=== PATIENT | male | born 1960 | race Hispanic/Latino ===

== ENCOUNTER 2016-05-02 19:07 | Emergency (ER) | payer SELFPAY ==
[~2016-05-02] VITALS: Ht 162.6 cm; Wt 72.1 kg
[~2016-05-02 19:07] MED LIST: ASPIR-LOW81 MG PO; ATARAX,VISTARIL50 MG PO; ATORVASTATIN CA80 MG PO; CLOPIDOGREL75 MG PO; ENDOCET 5-3251 EACH PO; Ecotrin PO; LEVAQUIN750 MG PO; LISINOPRIL5 MG PO; LOPRESSOR25 MG PO; LOVASTATIN20 MG PO; LOVENOX40 MG/0.4 SC; NITROSTAT0.4 MG SL; PREDNISONE10 MG PO; SENOKOT S,PE1 TABLET PO
[2016-05-02 21:03] LABS: HEMATOCRIT 42.5 % (38.0-50.0); MCH 31.4 PG (29.0-34.0); MCV 87.3 FL (86-99); MEAN PLAT.VOLUME 11.2 uM^3 (9.0-12.4); PLATELET COUNT 239 K/uL (156-360); RBC DIS.WIDTH-CV 12.2 % (11.8-14.6); RBC DIS.WIDTH-SD 38.1 % (39-53); RED BLOOD COUNT 4.87 M/uL (4.00-5.50); WHITE BLOOD COUNT 10.2 K/uL (4.1-10.2)
[2016-05-02 21:11] LABS: CHLORIDE 104 mEq/L (99-109); SODIUM 140 mEq/L (136-147)
[2016-05-02 21:13] LABS: GLUCOSE 113 mg/dL (70-99)
[2016-05-02 21:14] LABS: ANION GAP 14 MEQ/L (2-14)
[2016-05-02 21:16] LABS: SERUM ETHYL ALCOHOL 268 mg/dL
[2016-05-02 21:17] LABS: GFR ESTIMATE (CALCULATED) > 59 mL/min/
[2016-05-02 21:19] LABS: UREA NITROGEN (BUN) 12 mg/dL (9-23)
[2016-05-02 21:20] LABS: SALICYLATE < 5.0 MG/DL (15-30)
[2016-05-02 21:54] LABS: TROP-I INTERPRETATION NEGATIVE; TROPONIN-I 0.02 ng/mL (0.0-0.30)
[2016-05-02 23:32] VITALS: BP 104/50
== END 2016-05-02 23:33 | disposition home or self-care (01) ==
LOC: EME 19:07
DX: S01.81XA Laceration without foreign body of other part of head, initial encounter (principal); W01.0XXA Fall on same level from slipping, tripping and stumbling without subsequent striking against object, initial encounter; F10.99 Alcohol use, unspecified with unspecified alcohol-induced disorder; Z87.891 Personal history of nicotine dependence; Y90.8 Blood alcohol level of 240 mg/100 ml or more
CPT/HCPCS: 70450; 70486; 72125; 80048; 81003; 84484; 85027; 93005; 99281; 99284; G0480

== ENCOUNTER 2016-12-12 21:08 | Observation (INO) | payer SELFPAY ==
[~2016-12-12] VITALS: Ht 167.6 cm; Wt 72.9 kg
[2016-12-12 21:38] LABS: HEMATOCRIT 44.7 % (38.0-50.0); MCH 31.3 PG (29.0-34.0); MCHC 33.6 G/DL (30.0-36.0); MCV 93.3 FL (86-99); MEAN PLAT.VOLUME 10.9 uM^3 (9.0-12.4); PLATELET COUNT 264 K/uL (156-360); RBC DIS.WIDTH-CV 13.2 % (11.8-14.6); RBC DIS.WIDTH-SD 45.1 % (39-53); RED BLOOD COUNT 4.79 M/uL (4.00-5.50); WHITE BLOOD COUNT 9.2 K/uL (4.1-10.2)
[2016-12-12 21:45] LABS: CHLORIDE 108 mEq/L (99-109); POTASSIUM 4.2 mEq/L (3.7-5.4); SODIUM 144 mEq/L (136-147)
[2016-12-12 21:47] LABS: GLUCOSE 118 mg/dL (70-99)
[2016-12-12 21:48] LABS: ANION GAP 11 MEQ/L (2-14)
[2016-12-12 21:50] LABS: GFR ESTIMATE (CALCULATED) 51 mL/min/
[2016-12-12 21:51] LABS: UREA NITROGEN (BUN) 27 mg/dL (9-23)
[2016-12-12 22:13] LABS: LIPASE 42 U/L (1.0-51.0)
[2016-12-12 22:20] LABS: TROP-I INTERPRETATION NEGATIVE; TROPONIN-I 0.03 ng/mL (0.0-0.30)
[2016-12-12] MEDS ORDERED: TYLENOL EXTRA500 MG PO (22:55)
[2016-12-12 23:30] LABS: SERUM ETHYL ALCOHOL < 10 mg/dL
[2016-12-12 23:52] LABS: TOTAL BILIRUBIN 0.6 mg/dL (0.0-1.0)
[2016-12-12 23:53] LABS: ALKALINE PHOSPHATASE 98 IU/L (3-129)
[2016-12-12 23:56] LABS: DIRECT BILIRUBIN 0.3 mg/dL (0.0-0.3)
[2016-12-12 23:56] LABS: ADD MIUA? NO; BILIRUBIN NEGATIVE; BLOOD NEGATIVE; COLOR YELLOW ((YELLOW)); GLUCOSE (STRIP) NEGATIVE; KETONES NEGATIVE; LEUKOCYTES NEGATIVE; NITRITE NEGATIVE; PROTEIN (STRIP) 30; SPECIFIC GRAVITY 1.018 (1.000-1.030); UCUL ADDED? NO
[2016-12-13 00:44] VITALS: BP 131/84
[2016-12-13 00:55] LABS: AMPHETAMINE NEGATIVE (500 ng/mL); BARBITURATES NEGATIVE (200 ng/mL); BENZODIAZEPINES NEGATIVE (150 ng/mL); COCAINE NEGATIVE (150 ng/mL); INTERNAL CONTROLS VALID? YES; METHADONE NEGATIVE (200 ng/mL); METHAMPHETAMINE NEGATIVE (500 ng/mL); OPIATES (MORPHINE) NEGATIVE (100 ng/mL); OXYCODONE NEGATIVE (100 ng/mL); PHENCYCLIDINE NEGATIVE (25 ng/mL); PROPOXYPHENE NEGATIVE (300 ng/mL); THC CANNABINOIDS NEGATIVE (50 ng/mL); TRICYCLIC ANTIDEPRESSANTS NEGATIVE (300 ng/mL)
[2016-12-13 04:28] VITALS: BP 133/84
[2016-12-13 05:11] LABS: TROP-I INTERPRETATION NEGATIVE; TROPONIN-I 0.02 ng/mL (0.0-0.30)
[2016-12-13 05:17] LABS: HDL CHOLESTEROL 29 MG/DL (Desirable>=40); LDL CHOLESTEROL 85 mg/dL (Desirable<100); NON-HDL CHOLESTEROL 105 mg/dL (Desirable<160); TOTAL CHOLESTEROL 134 mg/dL (Desirable<200); TRIGLYCERIDES 99 MG/DL (Normal: <150)
[2016-12-13 08:00] VITALS: BP 141/93
[2016-12-13 10:11] LABS: EOSINOPHIL (%) 1.6 % (0-5); EOSINOPHIL COUNT 0.1 K/uL (0-0.3); HEMATOCRIT 41.9 % (38.0-50.0); IMMATURE GRANULOCYTE (%) 0.2 % (0.0-0.7); INSTRUMENT ABS NEUTROPHIL CT 3.5 K/uL; LYMPHOCYTE COUNT 1.6 K/uL (1.0-2.8); MCH 32.4 PG (29.0-34.0); MCHC 34.1 G/DL (30.0-36.0); MCV 94.8 FL (86-99); MONOCYTE (%) 7.5 % (3-12); MONOCYTE COUNT 0.4 K/uL (0-0.8); NEUTROPHIL (%) 62.5 % (45-76); NEUTROPHIL COUNT 3.5 K/uL (1.8-6.4); PLATELET COUNT 226 K/uL (156-360); RBC DIS.WIDTH-CV 13.3 % (11.8-14.6); RBC DIS.WIDTH-SD 46.6 % (39-53); RED BLOOD COUNT 4.42 M/uL (4.00-5.50); WHITE BLOOD COUNT 5.6 K/uL (4.1-10.2)
[2016-12-13 10:33] LABS: ALKALINE PHOSPHATASE 76 IU/L (3-129); ANION GAP 7 MEQ/L (2-14); CHLORIDE 108 MEQ/L (99-109); GFR ESTIMATE (CALCULATED) > 59 mL/min/; GLUCOSE 151 mg/dL (70-99); POTASSIUM 4.1 MEQ/L (3.7-5.4); SAMPLE HEMOLYSIS CHECK 0; SAMPLE ICTERIC CHECK 0; SAMPLE LIPEMIA CHECK 0; SODIUM 139 MEQ/L (136-147); TOTAL BILIRUBIN 0.7 MG/DL (0.0-1.0); UREA NITROGEN (BUN) 20 mg/dL (9-23)
[2016-12-13 10:37] LABS: TROP-I INTERPRETATION NEGATIVE; TROPONIN-I 0.02 ng/mL (0.0-0.30)
[2016-12-13 14:14] VITALS: BP 129/75
[2016-12-13] MEDS ORDERED: CARVEDILOL6.25 MG PO (14:24)
[2016-12-13] MEDS ORDERED: ATORVASTATIN CA40 MG PO (14:24)
[2016-12-13] MEDS ORDERED: NITROSTAT0.4 MG SL (14:24)
[2016-12-13] MEDS ORDERED: ASPIR-LOW81 MG PO (14:24)
== END 2016-12-13 15:48 | disposition home or self-care (01) ==
LOC: EME 21:08 → EDOF 22:48 → ENRESERV 22:51 → ENPENDDIS 12-13 → EDOF 12-13 00:35 → 5WEST 12-13 00:41
PROVIDERS: Emergency Medicine; Physician Assistant Medical
DX: R07.9 Chest pain, unspecified (principal); N17.9 Acute kidney failure, unspecified; I44.7 Left bundle-branch block, unspecified; I25.10 Atherosclerotic heart disease of native coronary artery without angina pectoris; I51.7 Cardiomegaly; Z86.74 Personal history of sudden cardiac arrest; I25.2 Old myocardial infarction; Z95.5 Presence of coronary angioplasty implant and graft; K80.20 Calculus of gallbladder without cholecystitis without obstruction; I10 Essential (primary) hypertension; E78.5 Hyperlipidemia, unspecified; Z91.19 Patient's noncompliance with other medical treatment and regimen; Z79.82 Long term (current) use of aspirin; R60.0 Localized edema; Z87.891 Personal history of nicotine dependence; R21 Rash and other nonspecific skin eruption; R10.13 Epigastric pain
CPT/HCPCS: 71020; 76705; 80048; 80053; 80061; 80076; 80306 90; 81003; 83690; 84484; 85025; 85027; 93005; 99281; 99285; G0378; G0480; J1650; J7030